=== PATIENT | male | born 1965 | race Caucasian/White ===

== ENCOUNTER 2019-12-23 21:41 | Emergency (ER) | payer OTHER, SELFPAY ==
--- NOTE | ~2019-12-23 | CT_ITS ---
EXAMINATION: CT brain wo con INDICATION: Headache COMPARISON: None TECHNIQUE: Standard unenhanced head CT. The dose-length product (DLP) was 681.00 mGy-cm. The mA was a djusted according to patient size. Iterative reconstruction technique was employed. FINDINGS: There is no intracranial hemorrhage, acute infarction, or abnormal mass lesion. The ventric les are normal. There is no abnormal mass effect or midline shift. The hopkins-white matter differentiat ion is normal. The basal cisterns are patent. The orbits are normal. There is minimal opacification o f the maxillary sinuses. IMPRESSION: 1. No acute intracranial abnormality. Reviewed, dictated and finalized at location A.
--- NOTE | ~2019-12-23 | XR_ITS ---
EXAMINATION: XR chest 2V DATE: 12/24/2019 00:58 INDICATION: Syncopal episode TECHNIQUE: PA and lateral views of the chest were obtained. COMPARISON: None FINDINGS: The lungs are clear with no focal airspace opacities, pulmonary edema, pleural effusion or pneumothor ax. The cardiomediastinal silhouette is normal. Mild thoracic spondylosis. IMPRESSION: 1. No acute cardiopulmonary disease. Reviewed, dictated and finalized at location A.
[2019-12-23 21:59] VITALS: BP 113/52; PULSE 81; RESP 18; TEMP 36.2; O2SAT 98
--- NOTE | 2019-12-23 22:03 | ECG_ITS ---
Measurements Intervals [place] Rate: 83 P: 30 ND: 195 QRS: 6 QRSD: 86 T: 29 QT: 355 QTc: 417 Interpretive Statements SINUS RHYTHM BASELINE ARTIFACT- I, II, III, AVR, AVL, AVF NORMAL ECG Electronically Signed On 12-24-2019 6:51:37 CDT by Bk Baumann D.O.
[2019-12-23 22:18] LABS: Basophils Absolute Auto 0.1 K/mm3 (0.0-0.1); Basophils Percent Auto 0.9 % (0.2-1.2); Eosinophils Absolute Auto 0.2 K/mm3 (0-0.3); Eosinophils Percent Auto 2.3 % (0-4.4); Hematocrit 39.1 % (42.0-52.0); Hemoglobin 14.5 g/dL (14.0-18.0); Immature Granulocyte Absolute 0.03 K/mm3 (0.00-0.031); Immature Granulocyte Percent A 0.3 % (0-0.5); Lymphocytes Absolute Auto 3.16 K/mm3 (0.9-3.2); Mean Corpuscular HGB Conc 37.1 g/dl (32-36); Mean Corpuscular Hemoglobin 36.8 pg (26-34); Mean Corpuscular Volume 99.2 fl (80-100); Mean Platelet Volume 9.2 fl (7.4-10.4); Monocytes Absolute Auto 1.1 K/mm3 (0.1-0.6); Neutrophils Percent Auto 52.5 % (45.5-73.1); Platelet Count Result 237 k/mm3 (150-375); Red Blood Count 3.94 M/mm3 (4.6-6.20); Red Cell Distribution Width 12.2 % (11.5-14.5); White Blood Count 9.6 K/mm3 (4.5-10.0)
[2019-12-23 22:32] LABS: Blood Urea Nitrogen 17 mg/dL (9-20); Calcium 8.8 mg/dL (8.4-10.2); Carbon Dioxide 22 mmol/L (22-30); Chloride 98 mmol/L (98-107); Estimated CRCL calculation 67 ml/min; Estimated Glomerular Filt Rate 53; Glucose 105 mg/dL (75-110); Potassium 3.6 mmol/L (3.4-5.0); Sodium 131 mmol/L (137-145)
[2019-12-24 00:33] VITALS: BP 125/71; PULSE 77; RESP 16; O2SAT 98
[2019-12-24 00:34] VITALS: BP 117/71; BP 118/68; PULSE 76; PULSE 88; RESP 16; O2SAT 98
[2019-12-24] MEDS: SODIUM CHLORIDE 0.9% IV 1,000 ML 999 ML IV CONT (00:50)
[2019-12-24 01:42] VITALS: BP 136/77; PULSE 78; RESP 16; O2SAT 100
--- NOTE | 2019-12-24 01:51 | ED.GENADULT ---
HPI - General Adult General Chief complaint: Syncope Stated complaint: syncopal episode x 4 days Time Seen by Provider: 12/24/19 00:26 History of Present Illness HPI narrative: Patient is a 54-year-old male who presents the ER with syncope. Patient awoke from sleeping and was looking outside when he passed out and hit the ground. Reports he was out for just a couple of seconds. Did not feel lightheaded or feel like his heart was racing prior to this. No chest pain. Has similar episode few days ago where he had some taking in his right leg. Reports he had been working outside for several hours today when it was hot and felt very fatigued afterwards. Denies any fevers or chills or sweats. No sinus congestion/sore throat. No known sick contacts. Related Data Home Medications Medication Instructions Recorded Confirmed metoprolol succinate PO 12/23/19 Allergies Allergy/AdvReac Type Severity Reaction Status Date / Time No Known Allergies Allergy Verified 12/23/19 22:02 Review of Systems Review of Systems: All systems reviewed & are unremarkable except as noted in HPI and below Constitutional: Constitutional: Denies chills, Reports fatigue, Denies fever(s) and Denies weakness ENT: Denies dizziness, Denies nasal congestion and Denies sore throat Cardiovascular: Cardiovascular: Denies chest pain and Denies radiating jaw, neck or arm pain Respiratory: Respiratory: Denies cough, Denies dyspnea and Denies wheezing Gastrointestinal: Gastrointestinal: Denies abdominal pain, Denies diarrhea, Denies nausea and Denies vomiting Neurologic: Denies dizziness, Reports syncope, Denies focal weakness and Denies numbness PMFSH Past Medical History Medical History (Updated 12/24/19 @ 01:57 by Nikolay Man MD) Hypertension Rosacea Surgical History Surgical History (Updated 12/24/19 @ 01:54 by Nikolay Man MD) No pertinent past surgical history Social History Social History (Updated 12/24/19 @ 01:54 by Nikolay Man MD) Smoking status: Never smoker Gender identity (if verbalized by the patient): Male Exam Narrative: Exam Narrative: GENERAL: Well-appearing, well-nourished, and in no acute distress. HEAD: Normocephalic, atraumatic. ENT: Mucous membranes moist. No pharyngeal erythema or tonsillar exudate. CHEST: Clear to auscultation. No respiratory distress. HEART: Regular rate and rhythm. No murmur heard. Normal peripheral pulses. ABDOMEN: Soft, nontender, nondistended. EXTREMITIES: Normal range of motion. No edema. SKIN: Warm, dry, no rash. Right face due to rosacea. NEURO: Alert and oriented x3. PSYCH: Normal mood and affect. Course Course Emergency Course: Unremarkable work-up. Normal orthostatics. Recommend follow-up with PCP for further treatment evaluation. Encourage hydration. Vital Signs Vital signs: Vital Signs Temperature 97.2 F L 12/23/19 21:59 Pulse Rate 81 12/23/19 21:59 Respiratory Rate 18 12/23/19 21:59 Blood Pressure 113/52 L 12/23/19 21:59 Pulse Oximetry 98 12/23/19 21:59 Temperature 97.2 F L 12/23/19 21:59 Pulse Rate 78 12/24/19 01:42 Respiratory Rate 16 12/24/19 01:42 Blood Pressure 136/77 12/24/19 01:42 Pulse Oximetry 100 12/24/19 01:42 Medical Decision Making Vital Signs Vital Signs: Vital Signs Temperature 97.2 F L 12/23/19 21:59 Pulse Rate 81 12/23/19 21:59 Respiratory Rate 18 12/23/19 21:59 Blood Pressure 113/52 L 12/23/19 21:59 Pulse Oximetry 98 12/23/19 21:59 Temperature 97.2 F L 12/23/19 21:59 Pulse Rate 78 12/24/19 01:42 Respiratory Rate 16 12/24/19 01:42 Blood Pressure 136/77 12/24/19 01:42 Pulse Oximetry 100 12/24/19 01:42 Lab Data Result diagrams: 12/23/19 22:12 12/23/19 22:12 Labs: Lab Results 12/23/19 12/23/19 Range/Units 22:12 22:12 WBC 9.6 (4.5-10.0) K/mm3 RBC 3.94 L (4.6-6.20) M/mm3 Hgb 14.5 (14.0-18.0) g/dL
[2019-12-24 02:10] VITALS: BP 134/86; PULSE 82; RESP 16; TEMP 36.7; O2SAT 100
== END 2019-12-24 02:11 | disposition home or self-care (01) ==
PROVIDERS: Emergency Provider Emergency Medicine; PCP Family Medicine
DX: R55 Syncope and collapse (principal); I10 Essential (primary) hypertension
CPT/HCPCS: 36415; 70450; 71046; 80048; 85025; 93005; 96360; 99284; J7030

== ENCOUNTER 2020-01-18 14:28 | Emergency (ER) | payer OTHER, SELFPAY ==
--- NOTE | ~2020-01-18 | XR_ITS ---
EXAMINATION: XR foot LT min 3V DATE: 01/18/2020 15:37 INDICATION: Left foot injury and pain. TECHNIQUE: 4 views of left foot were obtained. COMPARISON: None. FINDINGS: There is a comminuted fracture of first proximal phalanx with involvement of the distal art icular surface. The main distal fracture fragment demonstrates near-anatomic alignment. There is a co mminuted fracture of first distal phalanx involving the proximal articular surface with mild displace ment of the fracture fragment at the lateral base. Joint spaces are normal. IMPRESSION: 1. Comminuted fractures of first proximal and distal phalanges. Reviewed, dictated and finalized at location A.
[2020-01-18 14:40] VITALS: BP 119/72; PULSE 75; RESP 20; TEMP 37; O2SAT 100
== END 2020-01-18 17:00 | disposition left against medical advice (07) ==
LOC: ANHED 17:04
PROVIDERS: Emergency Provider Emergency Medicine; PCP Family Medicine
DX: S90.30XA Contusion of unspecified foot, initial encounter (principal)
CPT/HCPCS: 73630; 99199

== ENCOUNTER 2020-11-20 01:02 | Emergency (ER) | payer OTHER, SELFPAY ==
--- NOTE | ~2020-11-20 | CT_ITS ---
EXAMINATION: CT soft tissue neck w con DATE: 11/20/2020 02:20 INDICATION: Neck swelling. TECHNIQUE: Computed tomography (CT) of the neck was performed with 75 mL Omnipaque-350 intravenous co ntrast. Automated exposure control and iterative reconstruction technique were employed. The dose-cr gth product was 639.42 mGy-cm. COMPARISON: None FINDINGS: There is enlargement of the lingual and right palatine tonsils. There is gas and fat strand ing in the submandibular space. There is erosion of the alveolar process lingual cortex adjacent to t he roots of tooth 31. There are no pathologically enlarged lymph nodes. There is plaque in the proxim al internal carotid arteries with less than 50% stenosis relative to normal distal artery lumen diame ters. There is mild cervical spondylosis. IMPRESSION: 1. Cortical erosion adjacent to the roots of tooth 31 with gas and inflammatory fat stranding in the submandibular space and enlargement of the lingula and right palatine tonsils. No drainable abscess. Reviewed, dictated and finalized at location A. IMPRESSION: 1. Cortical erosion adjacent to the roots of tooth 31 with gas and inflammatory fat stranding in the submandibular space and enlargement of the lingula and ri ght palatine tonsils. No drainable abscess.
[2020-11-20 01:07] VITALS: BP 114/53; PULSE 97; RESP 18; TEMP 36.9; O2SAT 100
--- NOTE | 2020-11-20 01:18 | ED.GENADULT ---
HPI - General Adult General Chief complaint: Dental/Oral Stated complaint: swelling in neck Time Seen by Provider: 11/20/20 01:08 Source: patient, family, RN notes reviewed and old records reviewed History of Present Illness HPI narrative: 55-year-old male presents to emergency department for neck swelling for the past 1 to 2 days. Patient states he has never had this in the past before. He reports having a sore throat, and pain with swallowing. Additionally, he reports right lower tooth pain for the past 7 to 10 days. His dentist prescribed some antibiotics. He has taken Aleve to help with the pain. Related Data Home Medications Medication Instructions Recorded Confirmed metoprolol succinate 1 mg PO DAILY 11/20/20 valsartan-hydrochlorothiazide tablet PO DAILY 11/20/20 Allergies Allergy/AdvReac Type Severity Reaction Status Date / Time shellfish derived Allergy Unknown Verified 11/20/20 03:40 Review of Systems Review of Systems: Narrative: CONSTITUTIONAL: Denies fever, chills, or sweats. EYES: Denies visual changes, redness, or discharge. ENT: Reports neck swelling, and sore throat CARDIOVASCULAR: Denies chest pain, palpitations, or edema. RESPIRATORY: Denies cough or dyspnea. GASTROINTESTINAL: Denies abdominal pain, nausea, vomiting, or diarrhea. GENITOURINARY: Denies dysuria or hematuria. SKIN: Denies rash or itching. MUSCULOSKELETAL: Denies back pain, joint pain, or myalgia. NEUROLOGIC: Denies headache, numbness, dizziness, or weakness. PSYCHIATRIC: Denies anxiety or depression. All systems reviewed & are unremarkable except as noted in HPI and below (ROS) PMFSH Past Medical History Medical History Hypertension Rosacea Surgical History Surgical History No pertinent past surgical history Social History Social History Smoking status: Never smoker Gender identity (if verbalized by the patient): Male Exam Narrative: Exam Narrative: GENERAL: Well-appearing, well-nourished, and in no acute distress. Nontoxic appearance. HEAD: Normocephalic, atraumatic. EYES: PERRLA and EOMI. ENT: Nares clear, no rhinorrhea or epistaxis. Mucous membranes moist. No FILTER PLANT OPERATOR. Poor dentition. Slight limited range of motion with rotation of the neck. Patient able to speak in full sentences, not drooling. NECK: Anterior neck mass palpated. CHEST: Clear to auscultation. No respiratory distress. HEART: Regular rate and rhythm. No murmur heard. Normal peripheral pulses. ABDOMEN: Soft, nontender, nondistended, normal active bowel sounds. EXTREMITIES: Normal range of motion. No edema. SKIN: Warm, dry, no rash. NEURO: No focal deficits. Alert and oriented x3. PSYCH: Normal mood and affect. Course Course Emergency Course: 3:30AM -reevaluated patient, pain improved. Heart rate improved after fluids. 3:40AM - spoke with [facility] transfer line 3:55AM - spoke with [facility] ENT, will need OMFS, recommends transfer to [facility] or [facility] 4:04AM - called [facility] transfer, discussed case with ENT, will review imaging 4:20AM - Dr. Morrison, accepting ER physician at [facility] 4:30AM -reevaluated patient, no new complaints. No airway compromise at this time. Vital Signs Vital signs: Vital Signs Temperature 36.9 C 11/20/20 01:07 Pulse Rate 97 11/20/20 01:07 Respiratory Rate 18 11/20/20 01:07 Blood Pressure 114/53 L 11/20/20 01:07 Pulse Oximetry 100 11/20/20 01:07 Temperature 36.7 C 11/20/20 04:39 Pulse Rate 77 11/20/20 04:39 Respiratory Rate 18 11/20/20 04:39 Blood Pressure 122/79 11/20/20 04:39 Pulse Oximetry 98 11/20/20 04:39 Medical Decision Making Medical Records Medical records reviewed: Yes I reviewed the external patient's medical records. Vital Signs Vital Signs: Vital Signs Temperature 36.9 C 11/20/20 01:07 Pulse Rate
[2020-11-20] MEDS: KETOROLAC 15 MG/ML VIAL (*BKC) IV PUSH (01:35)
[2020-11-20] MEDS: DEXAMETHASONE SOD PHOS INJ 4 MG/ML VIAL 10 MG IV PUSH (01:36)
[2020-11-20 02:06] LABS: Estimated CRCL calculation 43 ml/min; Estimated Glomerular Filt Rate 31
[2020-11-20] MEDS: SODIUM CHLORIDE 0.9% IV 1,000 ML 999 ML IV CONT (02:18)
[2020-11-20 02:24] LABS: Hematocrit 33.9 % (42.0-52.0); Hemoglobin 12.6 g/dL (14.0-18.0); Mean Corpuscular HGB Conc 37.2 g/dl (32-36); Mean Corpuscular Hemoglobin 37.6 pg (26-34); Mean Corpuscular Volume 101.2 fl (80-100); Mean Platelet Volume 9.3 fl (7.4-10.4); Platelet Count Result 199 k/mm3 (150-375); Red Blood Count 3.35 M/mm3 (4.6-6.20); Red Cell Distribution Width 12.4 % (11.5-14.5); White Blood Count 18.9 K/mm3 (4.5-10.0)
[2020-11-20 02:28] LABS: Band Neutrophils Percent 12 % (0-6); Lymphocytes Absolute Manual 0.75 K/mm3 (1.1-4.5); Monocytes Absolute Manual 0.94 K/mm3 (0.1-0.90); Monocytes Percent Manual 5 % (3-9); Neutrophils Absolute Manual 17.19 K/mm3 (1.3-6.7); Neutrophils Percent Manual 79 % (46-73); Platelet Estimate Adequate (Adequate); Total Cells Counted 100
[2020-11-20] MEDS: MORPHINE SULFATE (*CRX) 2 MG/ML INJ IV PUSH (02:46)
--- NOTE | 2020-11-20 02:48 | PC.NURSE ---
blanket given, at bedside,call lira in reach
[2020-11-20 03:37] VITALS: BP 120/79; PULSE 80; RESP 18; O2SAT 97
[2020-11-20] MEDS: MORPHINE SULFATE (*CRX) 4 MG/ML INJ IV PUSH (03:45)
[2020-11-20 03:48] LABS: Alanine Aminotransferase 38 U/L (4-50); Albumin Level 3.7 g/dL (3.5-5.1); Alkaline Phosphatase 71 U/L (38-126); Anion Gap 8 mmol/L (8-16); Aspartate Amino Transferase 61 U/L (17-59); Bilirubin,Total 1.6 mg/dL (0.2-1.3); Blood Urea Nitrogen 21 mg/dL (9-20); Calcium 8.4 mg/dL (8.4-10.2); Carbon Dioxide 26 mmol/L (22-30); Chloride 81 mmol/L (98-107); Estimated CRCL calculation 52 ml/min; Estimated Glomerular Filt Rate 39; Glucose 128 mg/dL (75-110); Sodium 115 mmol/L (137-145)
[2020-11-20 04:39] VITALS: BP 122/79; PULSE 77; RESP 18; TEMP 36.7; O2SAT 98
--- NOTE | 2020-11-20 05:20 | PC.NURSE ---
Report to [facility] EMS transport crew. to follow and meet patient at [place] [facility]. Vancomycin running on pump and transported with patient
== END 2020-11-20 05:20 | disposition short-term general hospital (02) ==
PROVIDERS: Emergency Provider Emergency Medicine; PCP Family Medicine
DX: K12.2 Cellulitis and abscess of mouth (principal); I10 Essential (primary) hypertension
CPT/HCPCS: 36415; 70491; 80053; 85025; 96361; 96365; 96367; 96375; 96376; 99285; J1100; J1885; J2270; J2543; J3370; J7030; Q9967

== ENCOUNTER → 2022-08-22 11:30 | Outpatient (CLI) | payer BC, SELFPAY ==
--- NOTE | ~2022-08-22 | XR_ITS ---
AP view of the pelvis and AP and lateral views of the right hip Clinical history: Pain Findings: No acute fracture or dislocation is seen. Osseous alignment is anatomic. Bilateral hip and SI joint spaces are preserved. Soft tissues are unremarkable. Impression: No significant abnormality is seen. Reviewed, dictated and finalized at [facility]. D BANK TECHNOLOGIST Impression: No significant abnormality is seen.
--- NOTE | ~2022-08-22 | XR_ITS ---
Lumbosacral Spine: AP and lateral views Clinical History: Pain Findings: The normal lordotic curve is maintained. The vertebral bodies and posterior elements are i ntact. There is mild facet joint arthropathy from L4 through S1. The intervertebral disc spaces are p reserved. The sacroiliac joints are normally outlined. Impression: Mild facet joint degenerative change, as above. Reviewed, dictated and finalized at location . PICKER CLOTH Impression: Mild facet joint degenerative change, as above.
== END ==
PROVIDERS: PCP Family Medicine; Visit Provider Chiropractor
DX: M54.50 Low back pain, unspecified (principal); M25.551 Pain in right hip
CPT/HCPCS: 72100; 73502

== ENCOUNTER 2024-07-16 14:49 | Outpatient (CLI) | payer OTHER, SELFPAY ==
--- NOTE | ~2024-07-16 | MR_ITS ---
EXAMINATION: MR lumbar spine wo con DATE: 07/16/2024 15:21 INDICATION: Lumbar radicular pain. TECHNIQUE: Magnetic resonance imaging (MRI) of the lumbar spine was performed without intravenous con trast. Sequences included sagittal T2-weighted FSE, sagittal T2-weighted FS FSE, sagittal T1-weighted FSE, and axial T2-weighted FSE. COMPARISON: Lumbar spine radiographs 08/22/2022 FINDINGS: There is 6 degrees levocurvature of lumbar spine. Vertebral body heights are normal. There is moderately decreased disc height at L3-L4 and mildly decreased disc height at L4-L5. The distal sp inal cord signal intensity is normal. The conus medullaris is at T12. The following disc levels are s pecifically discussed: L1-L2: The disc does not extend beyond the endplate margin. There is mild bilateral facet joint osteo arthritis. There is no neural foraminal stenosis. There is no central canal stenosis. L2-L3: The disc does not extend beyond the endplate margin. There is mild bilateral facet joint osteo arthritis. There is no neural foraminal stenosis. There is no central canal stenosis. L3-L4: The disc is bulging with superimposed central extrusion. There is mild bilateral facet joint o steoarthritis. There is mild bilateral neural foraminal stenosis. There is mild central canal stenosi s. L4-L5: The disc is bulging and has an annular fissure. There is mild right and moderate left facet barbie int osteoarthritis. There is mild bilateral neural foraminal stenosis. There is mild central canal st enosis. There is moderate stenosis of left lateral recess. L5-S1: The disc is bulging. There is moderate bilateral facet joint osteoarthritis. There is mild jonnathan ateral neural foraminal stenosis. There is mild central canal stenosis. IMPRESSION: 1. Moderate lumbar spondylosis. Reviewed, dictated and finalized at location A. AINABILITY MANAGER
== END 2024-07-16 14:50 | disposition home or self-care (01) ==
PROVIDERS: PCP Nurse Practitioner Family; Visit Provider Nurse Practitioner Family
DX: M47.26 Other spondylosis with radiculopathy, lumbar region (principal)
CPT/HCPCS: 72148

== ENCOUNTER 2024-07-19 09:48 | Outpatient (CLI) | payer OTHER, SELFPAY ==
--- NOTE | ~2024-07-19 | US_ITS ---
Ld ABDOMINAL ULTRASOUND (Doppler ultrasound interrogation techniques used as needed for this exam.) Ordering provider: Brooke Ken, PROFESSOR OF ENGINEERING History: . LIVER ENZYMES LEVEL ABOVE REFERENCE RANGE . Comparison: None. FINDINGS: PANCREAS: Partially seen. Normal echotexture and size. PORTAL VEIN: Hepatopedal flow demonstrated. Portal vein measures 1.3 cm. LIVER: Enlarged size and increased echotexture. The liver measures 20.5 cm. No focal hepatic lesions or perihepatic fluid collections are identified. BILIARY DUCTS: No intra or extrahepatic biliary dilation. Common bile duct measures 4 mm in diameter which is normal for patient's age. GALLBLADDER: Normal. No stones, sludge, gallbladder wall thickening or pericholecystic fluid. Negati ve sonographic Lopez's sign. FREE FLUID: None visualized within the upper abdomen. IMPRESSION: Hepatomegaly with fat infiltration. Otherwise, normal limited abdominal ultrasound. Reviewed, dictated and finalized at location A. ING SUPERVISOR IMPRESSION: Hepatomegaly with fat infiltration. Otherwise, normal limited abdominal ultraso und.
== END 2024-07-19 09:49 | disposition home or self-care (01) ==
LOC: GOSHIMG 09:49
PROVIDERS: PCP Nurse Practitioner Family; Visit Provider Nurse Practitioner Family
DX: R74.01 Elevation of levels of liver transaminase levels (principal); K76.0 Fatty (change of) liver, not elsewhere classified
CPT/HCPCS: 76705